=== PATIENT | female | born 1985 | race Caucasian/White ===

== ENCOUNTER → 2020-08-28 | Outpatient (CLI) | payer BC | LOC: GMA MATASK 15:04 | PROVIDERS: ATTEND Family Medicine | DX: N30.00 Acute cystitis without hematuria (principal) ==

== ENCOUNTER → 2021-01-01 | Outpatient (CLI) | payer BC | LOC: GMA MATASK 12:21 | PROVIDERS: ATTEND Family Medicine | DX: D51.8 Other vitamin B12 deficiency anemias (principal); R53.83 Other fatigue ==

== ENCOUNTER → 2021-01-06 | Outpatient (CLI) | payer BC | LOC: GMA MATASK 15:17 | PROVIDERS: ATTEND Family Medicine | DX: R42 Dizziness and giddiness (principal) ==

== ENCOUNTER → 2021-01-22 | Outpatient (CLI) | payer BC | LOC: RESP 10:10 | PROVIDERS: ATTEND Family Medicine | DX: R07.2 Precordial pain (principal) ==